=== PATIENT | female | born 1990 | race Caucasian/White ===

== ENCOUNTER → 2016-12-08 | Outpatient (CLI) | payer OTHER ==
[~2016-12-08] MED LIST: ACET1TAB43 PO; BUDE10.2 IH; BUDE10.22 IH; CYAN10006 PO; CYAN100088 PO; DOCU100C37 PO; DOXY-227 PO; DOXY100T2 PO; ENOX40DI13 SQ; FERR-74 PO; IBUP-1773 PO; MULT-301 PO; MULT-35 PO; PNV91TAB3 PO; RIVA15TA PO; RIVA20TA PO; VALA500T4 PO; [UNRECOGNIZED DRUG - CODE] SQ
--- NOTE | 2016-12-08 13:48 | Diagnostic Imaging Report ---
EXAMINATION: Pelvic ultrasound. INDICATION: Pelvic pain. FINDINGS: There are no prior studies available for comparison. The uterus is nongravid and not enlarged measuring 5.9 x 4.7 x 3.5 cm. The endometrial lining is not thickened measuring 5-6 mm. Within the endometrium, there is an IUD. The IUD seems to be in good position. Both ovaries are identified. There are subcentimeter follicles associated with each ovary and there is also a 2.2 x 1.9 cm simple cyst associated with the right ovary. There is no solid pelvic mass identified and there is no free fluid collection. IMPRESSION: 1. There is a 2.2 x 1.9 cm simple cyst associated with the right ovary. There is no acute pelvic abnormality identified otherwise. 2. There is an IUD within the uterus and the IUD seems to be in good position. Dictated by: Dictated on workstation # [id number]
== END ==
LOC: RAD 11:06
PROVIDERS: ATTEND Obstetrics & Gynecology
DX: N83.201 Unspecified ovarian cyst, right side (principal); Z97.5 Presence of (intrauterine) contraceptive device; T83.84XA Pain due to genitourinary prosthetic devices, implants and grafts, initial encounter; R10.2 Pelvic and perineal pain
CPT/HCPCS: 76830; 76856

== ENCOUNTER → 2017-04-14 | Outpatient (CLI) | payer OTHER ==
[~2017-04-14] VITALS: Ht 165.1 cm; Wt 84.4 kg
[~2017-04-14] MED LIST changes: +COSYNTROPIN 0.25 MG/ML (CORTROSYN) VIAL IV ONE
[2017-04-14 07:40] VITALS: BP 121/84
== END ==
LOC: SDC 07:33
PROVIDERS: ATTEND Internal Medicine
DX: R53.83 Other fatigue (principal); R79.0 Abnormal level of blood mineral
CPT/HCPCS: 36415; 82088; 82533; 96372

== ENCOUNTER → 2017-08-11 | Outpatient (CLI) | payer BC ==
[~2017-08-11] MED LIST changes: -COSYNTROPIN 0.25 MG/ML (CORTROSYN) VIAL IV ONE; -FERR-74 PO; +FERR325T18 PO
--- NOTE | 2017-08-11 18:26 | Diagnostic Imaging Report ---
PROCEDURE: US carotid duplex, bilateral. TECHNIQUE: Multiple real-time grayscale images were obtained over the carotid arteries in various projections, bilaterally. Additional duplex Doppler and color Doppler images were also obtained. INDICATION: Vertigo, dizziness, transient ischemic attack. FINDINGS: Color and grayscale images demonstrate no significant plaque like formation. There is no visualized area of stenosis. No abnormally elevated velocity to suggest a focal area of stenosis. External carotid arteries are patent. Vertebra arteries demonstrate antegrade direction of flow. IMPRESSION: Unremarkable carotid Doppler imaging. Parameters based on the consensus panel Del Cid-Scale and Doppler ultrasound criteria published February 2003, Radiology, Volume 229. Dictated by: Dictated on workstation # [id number]
--- NOTE | 2017-08-11 18:55 | Diagnostic Imaging Report ---
INDICATION: Vertigo, transient ischemic attack, central line, DVT. TECHNIQUE: Two view chest, 6:36 p.m. CORRELATION STUDY: 07/06/2017. FINDINGS: The heart size, mediastinal configuration and pulmonary vasculature are within normal limits. The lungs are clear with no consolidating infiltrate. There is no significant pleural effusion or pneumothorax. A left-sided central line is present. Tip appears to be projecting over the proximal aspect of the right atrium. Could safely be retracted approximately 2 cm. IMPRESSION: 1. No radiographic evidence for acute abnormality of the chest. 2. A left-sided central line is present. Tip projecting over the right atrium could be retracted approximately 2 cm. Report impression was left on Dr. Ronny Gloria's direct voice mail at 6:39 p.m. and also faxed to his office number from the [employer] by holland. Report was called to Mel Gloria by octaviano at 8:40 am. Dictated by: Dictated on workstation # [id number]
--- NOTE | 2017-09-07 08:14 | Physician Query-General Query ---
Physician Query-General Query to Physician: I am needing further specificity for the DVT. Laterality/site/ vessel.Unspecified codes are not accepted. PHYSICIAN RESPONSE: Based on the clinical findings in the record, please respond to the query above on this document as an addendum. Possible, probable, or questionable diagnosis can be coded for INPATIENTS ONLY. Physician Response: If you have questions please contact: Multifocal Button Generator: Nani Ext: [phone] Thank you for your time and cooperation. Clinical Pantograph Watcher/Multifocal Button Generator This is a permanent part of the medical record NANI ARAIZA September 07, 2017 08:14
== END ==
LOC: RAD 17:46
PROVIDERS: ATTEND Nurse Practitioner Family
DX: G45.9 Transient cerebral ischemic attack, unspecified (principal); I82.A11 Acute embolism and thrombosis of right axillary vein
CPT/HCPCS: 36415; 71046; 85379; 93880

== ENCOUNTER 2017-08-12 08:45 | Outpatient (RCR) | payer BC ==
[2017-07-06 13:45] VITALS: BP 154/97
[2017-07-06 14:58] LABS: HEMOGLOBIN 13.8 G/DL (11.5-16.0); RED BLOOD COUNT 4.73 10^6/uL (4.35-5.85); RED CELL DISTRIBUTION WIDTH 13.6 % (10.0-14.5); WHITE BLOOD COUNT 9.8 10^3/uL (4.3-11.0)
[2017-07-06 15:13] LABS: BILIRUBIN,URINE NEGATIVE (NEGATIVE); CLARITY,URINE CLEAR; COLOR,URINE YELLOW; GLUCOSE, URINE (UA) NEGATIVE (NEGATIVE); KETONES,URINE NEGATIVE (NEGATIVE); LEUKOCYTE ESTERASE ,URINE NEGATIVE (NEGATIVE); NITRITE,URINE NEGATIVE (NEGATIVE); PH,URINE 6.5 (5-9); PROTEIN,URINE NEGATIVE (NEGATIVE); UROBILINOGEN,URINE NORMAL (NORMAL)
--- NOTE | 2017-07-06 15:15 | Diagnostic Imaging Report ---
INDICATION: PICC line placement. TECHNIQUE: A frontal chest was obtained at 2:44 PM. COMPARISON: 03/02/2015. FINDINGS: The heart and mediastinal silhouette are normal in appearance. The lungs are clear. There is no pneumothorax or pleural fluid. The previous Port-A-Cath has been removed. There is a new PICC line in place from the left arm with the tip overlying the low SVC. IMPRESSION: The new left-sided PICC line tip overlies the low SVC. No acute process in the chest. Report was called to nurse Munoz in the office of Dr. Ronny Gloria at 3:14 p.m., by holland (for BRANDO). Dictated by: Dictated on workstation # [id number]
[2017-07-06 15:17] LABS: ALANINE AMINOTRANSFERASE 16 U/L (0-55); ALBUMIN 4.2 GM/DL (3.2-4.5); ALKALINE PHOSPHATASE 96 U/L (40-136); BILIRUBIN,TOTAL 0.5 MG/DL (0.1-1.0); BUN/CREATININE RATIO 14; CALCIUM 8.7 MG/DL (8.5-10.1); CARBON DIOXIDE 25 MMOL/L (21-32); CHLORIDE 105 MMOL/L (98-107); CREATININE SERUM 0.78 MG/DL (0.60-1.30); GFR ESTIMATED > 60; GLUCOSE 134 MG/DL (70-105); POTASSIUM 3.9 MMOL/L (3.6-5.0); SODIUM 136 MMOL/L (135-145)
[2017-07-06 15:20] LABS: BACTERIA,URINE FEW /HPF; RBC,URINE 0-2 /HPF; WBC,URINE RARE /HPF
[2017-07-06] MEDS: cefTRIAXone 1 GM/NS 100 ML IVPB IV SCH ×2 (15:20)
[2017-07-06 15:55] VITALS: BP 154/97
[2017-07-07 14:38] VITALS: BP 135/84
[2017-07-07] MEDS: cefTRIAXone 1 GM/NS 100 ML IVPB IV SCH ×2 (14:38)
[2017-07-08] MEDS: cefTRIAXone 1 GM/NS 100 ML IVPB IV SCH ×2 (14:29)
[2017-07-08 14:30] VITALS: BP 134/88
[2017-07-08 15:09] VITALS: BP 134/88
[2017-07-12] MEDS: cefTRIAXone 1 GM/NS 100 ML IVPB IV SCH ×2 (14:25)
[2017-07-12] MEDS: CATHETER FLUSH 10 ML SYR IV PRN ×2 (14:25→14:55)
[2017-07-12 15:01] VITALS: BP 123/80
[2017-07-13 14:15] VITALS: BP 122/74
[2017-07-13] MEDS: cefTRIAXone 1 GM/NS 100 ML IVPB IV SCH ×2 (14:36)
[2017-07-13] MEDS: CATHETER FLUSH 10 ML SYR IV PRN ×2 (14:36→15:05)
[2017-07-13 15:05] LABS: MEAN PLATELET VOLUME 10.6 FL (7.4-10.4); RED BLOOD COUNT 4.77 10^6/uL (4.35-5.85); RED CELL DISTRIBUTION WIDTH 13.7 % (10.0-14.5); WHITE BLOOD COUNT 9.8 10^3/uL (4.3-11.0)
[2017-07-13 15:30] LABS: ALANINE AMINOTRANSFERASE 14 U/L (0-55); ALBUMIN 4.3 GM/DL (3.2-4.5); ALKALINE PHOSPHATASE 98 U/L (40-136); BILIRUBIN,TOTAL 0.4 MG/DL (0.1-1.0); BUN/CREATININE RATIO 14; CALCIUM 9.2 MG/DL (8.5-10.1); CARBON DIOXIDE 25 MMOL/L (21-32); CHLORIDE 104 MMOL/L (98-107); CREATININE SERUM 0.76 MG/DL (0.60-1.30); GFR ESTIMATED > 60; GLUCOSE 132 MG/DL (70-105); POTASSIUM 3.5 MMOL/L (3.6-5.0); SODIUM 137 MMOL/L (135-145); TOTAL PROTEIN 7.3 GM/DL (6.4-8.2)
[2017-07-14] MEDS: CATHETER FLUSH 10 ML SYR IV PRN ×2 (14:24→14:55)
[2017-07-14] MEDS: cefTRIAXone 1 GM/NS 100 ML IVPB IV SCH ×2 (14:25)
[2017-07-14 15:00] VITALS: BP 137/88
[2017-07-15] MEDS: cefTRIAXone 1 GM/NS 100 ML IVPB IV SCH ×2 (14:21)
[2017-07-15 14:55] VITALS: BP 121/84
[2017-07-16] MEDS: CATHETER FLUSH 10 ML SYR IV PRN ×2 (09:17→09:45)
[2017-07-16] MEDS: cefTRIAXone 1 GM/NS 100 ML IVPB IV SCH ×2 (09:17)
[2017-07-16 09:45] VITALS: BP 131/81
[2017-07-17] MEDS: CATHETER FLUSH 10 ML SYR IV PRN ×2 (09:26→09:45)
[2017-07-17] MEDS: cefTRIAXone 1 GM/NS 100 ML IVPB IV SCH ×2 (09:26)
[2017-07-17 09:45] VITALS: BP 127/87
[2017-07-18] MEDS: CATHETER FLUSH 10 ML SYR IV PRN (14:16)
[2017-07-18] MEDS: cefTRIAXone 1 GM/NS 100 ML IVPB IV SCH ×2 (14:16)
[2017-07-18 14:40] VITALS: BP 132/80
[2017-07-19] MEDS: cefTRIAXone 1 GM/NS 100 ML IVPB IV SCH ×2 (14:09)
[2017-07-19 14:14] VITALS: BP 128/82
[2017-07-19 14:40] VITALS: BP 128/82
[2017-07-19] MEDS: CATHETER FLUSH 10 ML SYR IV PRN (14:40)
[2017-07-20] MEDS: CATHETER FLUSH 10 ML SYR IV PRN ×2 (14:09→14:40)
[2017-07-20] MEDS: cefTRIAXone 1 GM/NS 100 ML IVPB IV SCH ×2 (14:10)
[2017-07-20 14:19] LABS: BASOPHILS % (AUTO) 0 % (0-10); EOSINOPHILS # (AUTO) 0.4 10^3/uL (0.0-0.3); EOSINOPHILS % (AUTO) 4 % (0-10); HEMATOCRIT 41 % (35-52); HEMOGLOBIN 14.1 G/DL (11.5-16.0); LYMPHOCYTES # (AUTO) 2.5 X 10^3 (1.0-4.0); LYMPHOCYTES % (AUTO) 29 % (12-44); MEAN CORPUSCULAR HEMOGLOBIN 30 PG (25-34); MEAN CORPUSCULAR HGB CONC 35 G/DL (32-36); MEAN CORPUSCULAR VOLUME 86 FL (80-99); MEAN PLATELET VOLUME 9.6 FL (7.4-10.4); MONOCYTES # (AUTO) 0.5 X 10^3 (0.0-1.0); MONOCYTES % (AUTO) 6 % (0-12); NEUTROPHILS # (AUTO) 5.3 X 10^3 (1.8-7.8); NEUTROPHILS % (AUTO) 61 % (42-75); PLATELET COUNT 259 10^3/uL (130-400); RED BLOOD COUNT 4.76 10^6/uL (4.35-5.85); RED CELL DISTRIBUTION WIDTH 13.8 % (10.0-14.5); WHITE BLOOD COUNT 8.8 10^3/uL (4.3-11.0)
[2017-07-20 14:49] LABS: ALANINE AMINOTRANSFERASE 16 U/L (0-55); ALBUMIN 4.3 GM/DL (3.2-4.5); ALKALINE PHOSPHATASE 94 U/L (40-136); BILIRUBIN,TOTAL 0.4 MG/DL (0.1-1.0); BUN/CREATININE RATIO 14; CALCIUM 8.7 MG/DL (8.5-10.1); CARBON DIOXIDE 25 MMOL/L (21-32); CHLORIDE 105 MMOL/L (98-107); CREATININE SERUM 0.76 MG/DL (0.60-1.30); GFR ESTIMATED > 60; GLUCOSE 115 MG/DL (70-105); POTASSIUM 3.9 MMOL/L (3.6-5.0); SODIUM 137 MMOL/L (135-145); TOTAL PROTEIN 7.4 GM/DL (6.4-8.2)
[2017-07-20 14:50] VITALS: BP 149/87
[2017-07-20 15:19] LABS: BILIRUBIN,URINE NEGATIVE (NEGATIVE); CLARITY,URINE CLEAR; COLOR,URINE YELLOW; GLUCOSE, URINE (UA) NEGATIVE (NEGATIVE); KETONES,URINE NEGATIVE (NEGATIVE); LEUKOCYTE ESTERASE ,URINE 1+ (NEGATIVE); NITRITE,URINE NEGATIVE (NEGATIVE); PH,URINE 6.5 (5-9); PROTEIN,URINE NEGATIVE (NEGATIVE); UROBILINOGEN,URINE NORMAL (NORMAL)
[2017-07-20 15:28] LABS: BACTERIA,URINE NEGATIVE /HPF; WBC,URINE RARE /HPF
[2017-07-21 16:40] VITALS: BP 123/87
[2017-07-21] MEDS: CATHETER FLUSH 10 ML SYR IV PRN (16:44)
[2017-07-21] MEDS: DOXYCYCLINE INJECTION 100 MG in NS (IVPB) 100 ML IV SCH (16:45)
[2017-07-21] MEDS: cefTRIAXone 1 GM/NS 100 ML IVPB IV SCH ×2 (17:32)
[2017-07-22] MEDS: DOXYCYCLINE INJECTION 100 MG in NS (IVPB) 100 ML IV SCH ×2 (08:39→20:42)
[2017-07-22 08:41] VITALS: BP 135/86
[2017-07-22 09:36] VITALS: BP 135/86
[2017-07-22 20:30] VITALS: BP 134/70
[2017-07-22] MEDS: CATHETER FLUSH 10 ML SYR IV PRN ×2 (20:42→21:40)
[2017-07-23] MEDS: DOXYCYCLINE INJECTION 100 MG in NS (IVPB) 100 ML IV SCH (08:32)
[2017-07-23 10:18] VITALS: BP 125/81
[2017-07-24] MEDS: DOXYCYCLINE INJECTION 100 MG in NS (IVPB) 100 ML IV SCH (08:13)
[2017-07-24 08:16] VITALS: BP 130/84
[2017-07-24 09:11] VITALS: BP 130/84
[2017-07-25] MEDS: CATHETER FLUSH 10 ML SYR IV PRN ×2 (08:14→20:53)
[2017-07-25 08:30] VITALS: BP 131/80
[2017-07-25] MEDS: DOXYCYCLINE INJECTION 100 MG in NS (IVPB) 100 ML IV SCH ×2 (08:35→20:53)
[2017-07-25] MEDS: cefTRIAXone 1 GM/NS 100 ML IVPB IV SCH ×4 (09:40→09:42)
[2017-07-25 20:35] VITALS: BP 145/80
[2017-07-27] MEDS: DOXYCYCLINE INJECTION 100 MG in NS (IVPB) 100 ML IV SCH (08:43)
[2017-07-27 08:55] VITALS: BP 135/91
[2017-07-27 09:41] VITALS: BP 135/91
[2017-07-28 08:40] VITALS: BP 115/85
[2017-07-28] MEDS: CATHETER FLUSH 10 ML SYR IV PRN (08:54)
[2017-07-28] MEDS: DOXYCYCLINE INJECTION 100 MG in NS (IVPB) 100 ML IV SCH (08:54)
[2017-07-30 09:20] VITALS: BP 130/87
[2017-07-30] MEDS: DOXYCYCLINE INJECTION 100 MG in NS (IVPB) 100 ML IV SCH (09:27)
[2017-08-03] MEDS: DOXYCYCLINE INJECTION 100 MG in NS (IVPB) 100 ML IV SCH ×3 (08:09→08:40)
[2017-08-03 08:30] VITALS: BP 124/73
[2017-08-03] MEDS: CATHETER FLUSH 10 ML SYR IV PRN (08:35)
[2017-08-04] MEDS: CATHETER FLUSH 10 ML SYR IV PRN (08:15)
[2017-08-04 08:20] VITALS: BP 111/90
[2017-08-04] MEDS: DOXYCYCLINE INJECTION 100 MG in NS (IVPB) 100 ML IV SCH (08:20)
[2017-08-04 08:38] LABS: BILIRUBIN,URINE NEGATIVE (NEGATIVE); CLARITY,URINE CLEAR; COLOR,URINE YELLOW; GLUCOSE, URINE (UA) NEGATIVE (NEGATIVE); KETONES,URINE NEGATIVE (NEGATIVE); LEUKOCYTE ESTERASE ,URINE 2+ (NEGATIVE); NITRITE,URINE NEGATIVE (NEGATIVE); PH,URINE 6.5 (5-9); PROTEIN,URINE 1+ (NEGATIVE); UROBILINOGEN,URINE NORMAL (NORMAL)
[2017-08-04 08:45] LABS: BACTERIA,URINE LARGE /HPF; RBC,URINE 0-2 /HPF
[2017-08-04 09:00] LABS: HEMOGLOBIN 14.5 G/DL (11.5-16.0); MEAN PLATELET VOLUME 10.4 FL (7.4-10.4); RED BLOOD COUNT 4.95 10^6/uL (4.35-5.85); RED CELL DISTRIBUTION WIDTH 13.7 % (10.0-14.5); WHITE BLOOD COUNT 5.7 10^3/uL (4.3-11.0)
[2017-08-04 09:12] LABS: ALANINE AMINOTRANSFERASE 18 U/L (0-55); ALBUMIN 4.6 GM/DL (3.2-4.5); ALKALINE PHOSPHATASE 97 U/L (40-136); BILIRUBIN,TOTAL 0.6 MG/DL (0.1-1.0); BUN/CREATININE RATIO 18; CALCIUM 9.4 MG/DL (8.5-10.1); CARBON DIOXIDE 24 MMOL/L (21-32); CHLORIDE 106 MMOL/L (98-107); CREATININE SERUM 0.79 MG/DL (0.60-1.30); GFR ESTIMATED > 60; GLUCOSE 83 MG/DL (70-105); POTASSIUM 4.5 MMOL/L (3.6-5.0); SODIUM 138 MMOL/L (135-145); TOTAL PROTEIN 7.8 GM/DL (6.4-8.2)
[2017-08-05] MEDS: DOXYCYCLINE INJECTION 100 MG in NS (IVPB) 100 ML IV SCH (08:36)
[2017-08-05 09:41] VITALS: BP 126/83
[2017-08-08] MEDS: CATHETER FLUSH 10 ML SYR IV PRN ×4 (08:35→09:30)
[2017-08-08] MEDS: DOXYCYCLINE INJECTION 100 MG in NS (IVPB) 100 ML IV SCH (08:43)
[2017-08-08 09:30] VITALS: BP 121/83
[2017-08-09] MEDS: DOXYCYCLINE INJECTION 100 MG in NS (IVPB) 100 ML IV SCH (08:40)
[2017-08-09] MEDS: CATHETER FLUSH 10 ML SYR IV PRN (08:40)
[2017-08-09 09:40] VITALS: BP 127/78
[2017-08-10 08:10] VITALS: BP 136/91
[2017-08-10] MEDS: CATHETER FLUSH 10 ML SYR IV PRN (08:14)
[2017-08-10] MEDS: DOXYCYCLINE INJECTION 100 MG in NS (IVPB) 100 ML IV SCH (08:15)
[2017-08-11 08:50] VITALS: BP 129/76
[2017-08-11] MEDS: CATHETER FLUSH 10 ML SYR IV PRN (08:50)
[2017-08-11] MEDS: DOXYCYCLINE INJECTION 100 MG in NS (IVPB) 100 ML IV SCH (08:55)
[~2017-08-12] VITALS: Ht 165.1 cm; Wt 70.4 kg
[~2017-08-12 08:45] MED LIST changes: +DOXYCYCLINE 100 MG INJ (VIBRAMYCIN) ONE; -GADOBUTROL 7.5 MMOL/7.5 ML (GADAVIST) VIAL IV ONE; +NS (IVPB) 0 ML ONE; +NS (IVPB) 100 ML ONE; +cefTRIAXone 1 GM (ROCEPHIN) VIAL ONE
[2017-08-12 08:50] VITALS: BP 134/88
== END 2017-10-04 | disposition home or self-care (01) ==
LOC: SDC 08:45
PROVIDERS: ATTEND Nurse Practitioner Family
DX: R78.81 Bacteremia (principal); A69.22 Other neurologic disorders in Lyme disease
CPT/HCPCS: 36415; 36569; 36592; 71045; 76937; 80053; 81000; 85025; 85027; 87070; 87088; 96365; 99211

== ENCOUNTER → 2017-08-12 | Outpatient (CLI) | payer BC ==
[~2017-08-12] MED LIST changes: +GADOBUTROL 7.5 MMOL/7.5 ML (GADAVIST) VIAL IV ONE
--- NOTE | 2017-08-12 16:00 | Diagnostic Imaging Report ---
PROCEDURE: MR imaging of the brain with and without contrast. TECHNIQUE: Multiplanar, multisequence MR imaging of the brain was performed with and without contrast. INDICATION: Severe headache and dizziness as well as confusion and numbness and tingling to the entire body. COMPARISON: No prior studies are available for comparison. FINDINGS: The ventricles and sulci are within normal limits. No sulcal effacement, midline shift, or hemorrhage is seen. No diffusion restriction is identified. The normal expected flow-voids within the carotid siphons are seen. No abnormal enhancement is seen following contrast administration. The corpus callosum is unremarkable. The sella and parasellar structures are unremarkable. There is mucosal thickening of bilateral maxillary sinuses as well as right-sided ethmoid air cells and the sphenoid sinus. There is a shallow air-fluid level in the left maxillary sinus. IMPRESSION: 1. Essentially unremarkable MRI of the brain with and without contrast with the exception of laboy-sinus mucosal disease and questionable mild left maxillary sinusitis. Dictated by: Dictated on workstation # [id number]
== END ==
LOC: RAD 13:38
PROVIDERS: ATTEND Nurse Practitioner Family
DX: R51 Headache (principal); R41.0 Disorientation, unspecified; R42 Dizziness and giddiness; I82.409 Acute embolism and thrombosis of unspecified deep veins of unspecified lower extremity
CPT/HCPCS: 70553

== ENCOUNTER 2018-02-03 10:40 | Emergency (ER) | payer BC ==
[~2018-02-03] VITALS: Ht 165.1 cm; Wt 74.4 kg
[~2018-02-03 10:40] MED LIST changes: -DOXYCYCLINE 100 MG INJ (VIBRAMYCIN) ONE; -NS (IVPB) 0 ML ONE; -NS (IVPB) 100 ML ONE; -cefTRIAXone 1 GM (ROCEPHIN) VIAL ONE
--- NOTE | 2018-02-03 10:56 | ED General ---
General Stated Complaint: R ARM AND LEG NUMB;PAIN Source of Information: Patient Exam Limitations: No Limitations History of Present Illness Date Seen by Provider: Feb 03, 2018 Time Seen by Provider: 10:51 Initial Comments To ER with c/o right arm numbness and right leg numbness for 3 days. History of DVT in right arm "because of her port" in 2014. Has a port placed due to "chronic lymes disease" for which she was receiving IV doxycycline which has been "in remission" so she hasnt had any treatment since August of this here but here lately she's been having symptoms again. She has tenderness to the right anterior upper arm but no numbness. The numbness starts at the elbow and extends distally down the volar aspect of the right forearm. The knee numbness in the right leg begins at the knee and extends distally from there. No headaches or fevers. PCP is Dr Hunt but states Cinda Faizan helps with her chronic lyme disease. Timing/Duration: 1-2 Days Severity: Moderate Allergies and Home Medications Allergies Coded Allergies: ragweed pollen (Verified Allergy, Unknown, 02/02/16) Home Medications Acetaminophen with Codeine 1 Each Tablet, 1-2 TAB PO Q4H PRN for MODERATE TO SEVERE PAIN Prescribed by: RAFAL ROSADO on 02/02/162022 Docusate Sodium 100 Mg Capsule, 100 MG PO BID PRN for CONSTIPATION Prescribed by: RAFAL ROSADO on 02/02/162022 Ferrous Sulfate 325 Mg Tablet, 325 MG PO DAILY Prescribed by: RAFAL ROSADO on 02/02/162022 Ibuprofen 600 Mg Tablet, 600 MG PO Q6H Prescribed by: RAFAL ROSADO on 02/02/162022 Pnv95/Ferrous Fumarate/FA 1 Each Tablet, 1 EACH PO DAILY, (Reported) Patient Home Medication List Home Medication List Reviewed: Yes Review of Systems Review of Systems Constitutional: see HPI EENTM: see HPI Respiratory: no symptoms reported Cardiovascular: no symptoms reported Genitourinary: no symptoms reported Musculoskeletal: see HPI Skin: no symptoms reported Psychiatric/Neurological: See HPI, Paresthesia Hematologic/Lymphatic: No Symptoms Reported Past Kammuto-Sobobj-Tdpzci Hx Patient Social History Recent Hopitalizations: Yes (February - blood clot ) Immunizations Up To Date Tetanus Booster (TDap): Unknown PED Vaccines UTD: No Seasonal Allergies Seasonal Allergies: Yes Past Medical History Asthma Currently Using CPAP: No Currently Using BIPAP: No Reproductive Disorders: No Female Reproductive Disorders: Denies Sexually Transmitted Disease: No HIV/AIDS: No Loss of Vision: Denies Hearing Impairment: Denies Anxiety Adverse Reaction/Blood Tranf: No Family Medical History Arthritis (MATERNAL GRANDPARENTS ) Cardiovascular disease (PATERNAL GRANDPARENT) Completed stroke (PATERNAL GRANDMOTHER) Dementia (MATERNAL GREAT-GRANDPARENTS ) Diabetes mellitus (BOTH SIDES OF GRANDPARENTS HAVE DM) Hypertension 19 FATHER Myocardial infarction (PATERNAL GRANDFATHER ) Prostate cancer (MATERNAL GREAT GRANDFATHER ) Severe allergy 19 FATHER Heart Disease, Hypertension, Vascular Disease Physical Exam Vital Signs Vital Signs - First Documented 02/03/18 10:58 Temp 98.1 Pulse 89 Resp 20 B/P (MAP) 122/86 (98) Pulse Ox 98 O2 Delivery Room Air Capillary Refill : Height, Weight, BMI Height: 5'5.00" Weight: 155lbs. 3.0oz. [id number]; 31.0 BMI Method: General Appearance: No Apparent Distress, WD/WN Eyes: Bilateral Eye Normal Inspection, Bilateral Eye PERRL HEENT: PERRL/EOMI, TMs Normal Neck: Full Range of Motion, Normal Inspection Respiratory: No Accessory Muscle Use, No Respiratory Distress Cardiovascular: Regular Rate, Rhythm, Normal Peripheral Pulses Gastrointestinal: Normal Bowel Sounds, Non Tender, Soft Extremity: Normal Capillary Refill, Normal Inspection Neurologic/Psychiatric: Alert, Oriented x3, No Motor/Sensory Deficits Skin: Normal Color, Warm/Dry, Other (no swelling erythema ecchymosis or any other abnormality of right arm on inspection.) Progress/Results/Core Measures Suspected Sepsis SIRS Temperature: Pulse: Respiratory Rate: Blood Pressure / Mean: Results/Orders My Orders Orders - DIVINA KRUGER APRN Ct Head/Cervical Spine Wo (02/03/18 10:50) Us Venous Upper Ext Rt (02/03/18 10:50) Vital Signs/I&O 02/03/18 10:58 Temp 98.1 Pulse 89 Resp 20 B/P (MAP) 122/86 (98) Pulse Ox 98 O2 Delivery Room Air Capillary Refill : Diagnostic Imaging Diagonstic Imaging: Xray Comments NAME: ANTONETTE JOHN MED REC#: [id number] PT STATUS: REG ER : 1990 PHYSICIAN: DIVINA KRUGER APRN ADMIT DATE: 02/03/18/ER Draft Date of Exam:02/03/18 CT HEAD/CERVICAL SPINE WO PROCEDURE: CT head and CT cervical spine without contrast. TECHNIQUE: Multiple contiguous axial images were obtained through the brain and cervical spine without the use of intravenous contrast. Sagittal and coronal reformations through the cervical spine were then performed. INDICATION: Numbness and tingling in neck, right arm and right leg. COMPARISON: MRI brain without and with IV contrast 08/12/2017. FINDINGS: CT head: No intracranial hemorrhage, mass effect, hydrocephalus or extra-axial fluid collections. No CT evidence for territorial infarction. Osseous structures are intact. Small air-fluid levels in the maxillary sinuses and sphenoid sinuses. The mastoids are clear. CT cervical spine: Normal alignment. Vertebral body heights preserved. No fractures. The visualized paravertebral soft tissues are unremarkable. No evidence of high-grade spinal canal narrowing. IMPRESSION: No acute intracranial or cervical spine CT findings. Dictated on workstation # [id number] Dict: 02/03/18 1220 Trans: 02/03/18 1227 [facility] [id number] Interpreted by: BRUNILDA RUVALCABA MD Electronically signed by: Departure Impression Primary Impression: Paresthesia of right arm and leg Disposition: 01 HOME, SELF-CARE Condition: Stable Departure-Patient Inst. Decision time for Depature: 10:56 Referrals: VENU HUNT MD (PCP/Family) Primary Care Physician Patient Instructions: Paresthesias (DC) Add. Discharge Instructions: 1. Follow up with Dr Hunt today to make an appointment to be seen for follow up and further evaluation. Copy Copies To 1: VENU HUNT MD, PETER J APRN Feb 03, 2018 10:56
[2018-02-03] MEDS ORDERED: NS 250 ML (IVPB) BAG IV ONE (11:15)
[2018-02-03] MEDS ORDERED: IOHEXOL 350 MG/ML 100 ML (OMNIPAQUE 350) VIAL IV ONE (11:15)
--- NOTE | 2018-02-03 12:27 | Diagnostic Imaging Report ---
PROCEDURE: CT head and CT cervical spine without contrast. TECHNIQUE: Multiple contiguous axial images were obtained through the brain and cervical spine without the use of intravenous contrast. Sagittal and coronal reformations through the cervical spine were then performed. INDICATION: Numbness and tingling in neck, right arm and right leg. COMPARISON: MRI brain without and with IV contrast 08/12/2017. FINDINGS: CT head: No intracranial hemorrhage, mass effect, hydrocephalus or extra-axial fluid collections. No CT evidence for territorial infarction. Osseous structures are intact. Small air-fluid levels in the maxillary sinuses and sphenoid sinuses. The mastoids are clear. CT cervical spine: Normal alignment. Vertebral body heights preserved. No fractures. The visualized paravertebral soft tissues are unremarkable. No evidence of high-grade spinal canal narrowing. IMPRESSION: No acute intracranial or cervical spine CT findings. Dictated by: Dictated on workstation # [id number]
--- NOTE | 2018-02-03 12:31 | Diagnostic Imaging Report ---
INDICATION: Right arm pain and tingling, history of previous deep vein thrombosis. Right upper extremity venous Doppler study performed in the routine fashion with color flow Doppler and waveform analysis. FINDINGS: The right internal jugular vein, right subclavian vein, and right axillary vein are patent and compressible. The right brachial and basilic veins are patent. The cephalic vein could not be imaged. Visualized portions of the ulnar and radial veins are patent. IMPRESSION: No evidence of deep vein thrombosis in the major veins of the right upper extremity. Dictated by: Dictated on workstation # [id number]
[2018-02-03 12:41] VITALS: BP 122/86
== END 2018-02-03 12:43 | disposition home or self-care (01) ==
LOC: EDUNIT# 10:40 → ER 10:41
DX: R20.2 Paresthesia of skin (principal); J45.909 Unspecified asthma, uncomplicated; F41.9 Anxiety disorder, unspecified; Z82.49 Family history of ischemic heart disease and other diseases of the circulatory system; Z86.718 Personal history of other venous thrombosis and embolism
CPT/HCPCS: 70450; 72125

== ENCOUNTER → 2020-04-23 | Outpatient (CLI) | payer BC ==
[~2020-04-23] MED LIST changes: +CYAN-41 PO; -CYAN10006 PO; +HYDR-4226 PO; -RIVA15TA PO; +RIVA15TA2 PO; -RIVA20TA PO; +RIVA20TA2 PO
== END ==
LOC: LABNPT 05:36
PROVIDERS: ATTEND Family Medicine
DX: Z20.828 Contact with and (suspected) exposure to other viral communicable diseases (principal)
CPT/HCPCS: 87635

== ENCOUNTER → 2020-05-19 | Outpatient (CLI) | payer BC ==
--- NOTE | 2020-05-19 12:38 | Diagnostic Imaging Report ---
INDICATION: survey. TECHNIQUE: Multiple real-time grayscale images were obtained over the gravid uterus. COMPARISON: None FINDINGS: There is a single live fetus in a cephalic presentation. heart rate was recorded at 152 bpm. Placenta is posterior and to the right. Amniotic fluid volume is normal. Cervical length is 5.3 cm. survey demonstrates kidneys, bladder and stomach to be unremarkable. brain is unremarkable. There is a four-chamber heart. There is a three-vessel cord with normal insertion. spine is unremarkable. Biometrical measurements are as follows: Biparietal 4.74 cm, age 20 weeks 3 days. Head circumference 18.23 cm, age 20 weeks 5 days. Abdominal circumference 15.47 cm, age 20 weeks 5 days. Femur length 3.53 cm, age 21 weeks 2 days. Sonographic estimate age: 20 weeks 6 days. Sonographic estimated date of delivery: 09/30/20. Estimated Weight: 381 gm (+/- 56 gm). LMP percentile: 60%. heart rate: 152 beats per minute. number: 1 of 1. IMPRESSION: Single live IUP 20 weeks 6 days gestational age. Estimated date of confinement sonographically is 09/30/2020. No complicating features are detected. Dictated by: Dictated on workstation # [id number]
== END ==
LOC: RAD 10:00
PROVIDERS: ATTEND Obstetrics & Gynecology
DX: Z34.92 Encounter for supervision of normal pregnancy, unspecified, second trimester (principal); Z3A.20 20 weeks gestation of pregnancy
CPT/HCPCS: 76805

== ENCOUNTER 2020-09-12 14:59 | Inpatient (IN) | payer BC ==
[~2020-09-12] VITALS: Ht 165.1 cm; Wt 85.0 kg
[2020-09-12 15:14] VITALS: BP 128/82
[2020-09-12] MEDS ORDERED: LACTATED RINGERS 1,000 ML IV SCH (16:00)
[2020-09-12] MEDS: D5 LR IV SOLUTION 1,000 ML IV SCH ×3 (16:35→18:34)
[2020-09-12 19:33] VITALS: BP 136/74
[2020-09-12 22:45] LABS: BASOPHILS % (AUTO) 0 % (0-10); EOSINOPHILS # (AUTO) 0.3 10^3/uL (0.0-0.3); EOSINOPHILS % (AUTO) 3 % (0-10); HEMATOCRIT 38 % (35-52); HEMOGLOBIN 12.6 g/dL (11.5-16.0); LYMPHOCYTES # (AUTO) 2.2 10^3/uL (1.0-4.0); LYMPHOCYTES % (AUTO) 24 % (12-44); MEAN CORPUSCULAR HEMOGLOBIN 30 pg (25-34); MEAN CORPUSCULAR HGB CONC 33 g/dL (32-36); MEAN CORPUSCULAR VOLUME 90 fL (80-99); MEAN PLATELET VOLUME 11.4 fL (9.0-12.2); MONOCYTES # (AUTO) 0.6 10^3/uL (0.0-1.0); MONOCYTES % (AUTO) 6 % (0-12); NEUTROPHILS # (AUTO) 6.3 10^3/uL (1.8-7.8); NEUTROPHILS % (AUTO) 66 % (42-75); PLATELET COUNT 228 10^3/uL (130-400); WHITE BLOOD COUNT 9.5 10^3/uL (4.3-11.0)
[2020-09-12 23:07] VITALS: BP 129/81
[2020-09-12 23:15] VITALS: BP 129/81
[2020-09-13] VITALS (12 sets, daily range): BP systolic 99–135; BP diastolic 62–83
[2020-09-13] MEDS: D5 LR IV SOLUTION 1,000 ML IV SCH (00:38)
[2020-09-13] MEDS ORDERED: METOCLOPRAMIDE INJ 10 MG/2 ML (REGLAN) ONE (04:49)
[2020-09-13] MEDS ORDERED: CITRIC ACID/SOB CIT (BICITRA) 30 ML UDC ONE (04:50)
[2020-09-13] MEDS ORDERED: ceFAZolin 2 GM IV Premixed 50 ML ONE (04:50)
[2020-09-13] MEDS ORDERED: FAMOTIDINE 20MG/2ML IV (PEPCID) ONE (04:50)
[2020-09-13] MEDS ORDERED: METOCLOPRAMIDE INJ 10 MG/2 ML (REGLAN) IV ONE (05:15)
[2020-09-13] MEDS ORDERED: CITRIC ACID/SOB CIT (BICITRA) 30 ML UDC PO ONE (05:15)
[2020-09-13] MEDS ORDERED: LACTATED RINGERS 1,000 ML IV PRN ×2 (05:15)
[2020-09-13] MEDS ORDERED: FAMOTIDINE 20MG/2ML IV (PEPCID) IV ONE (05:15)
[2020-09-13] MEDS: CATHETER FLUSH 10 ML SYR IV SCH ×3 (05:31→23:21)
[2020-09-13] MEDS ORDERED: OXYTOCIN PRE-MIX DRIP 1,000 ML IV ONE (05:41)
[2020-09-13] MEDS ORDERED: KETOROLAC 30 MG/ML VIAL ONE (05:41)
[2020-09-13] MEDS ORDERED: fentaNYL INJ 100 MCG/2 ML AMP ONE (05:41)
[2020-09-13] MEDS ORDERED: ONDANSETRON 4 MG/2 ML (SDV) Z0FRAN ONE (05:41)
[2020-09-13] MEDS ORDERED: ceFAZolin 2 GM IV Premixed 50 ML IV ONE (05:45)
--- NOTE | 2020-09-13 05:54 | History & Physical-OB ---
OB - Chief Complaint & HPI Date/Time Date of Admission: Date of Admission: September 12, 2020 at 21:35 Date seen by a Provider: September 13, 2020 Time Seen by a Provider: 05:30 Chief Complaint/History OB-Reason for Admission/Chief: Section Hx : 3 Hx Para: 1 Expected Date of Delivery: Oct 02, 2020 Gestational Age in Weeks: 37 Gestational Age in Days: 1 Indication for : malpresentation Other reason for admission: Patient admitted in early labor found to have persistent malpresentation, that was identified in office last week. We had discussed and planned/scheduled PLTCS for next Tuesday, however will proceed today due to early labor. Admission Nurse Assessment Rev: Yes History of Labs B pos Antibody neg RI RPR NR HBsAg NR HIV NR GC neg GBS neg Allergies and Home Medications Allergies Coded Allergies: ragweed pollen (Verified Allergy, Unknown, 02/02/16) Home Medications Acetaminophen with Codeine 1 Each Tablet, 1-2 TAB PO Q4H PRN for MODERATE TO SEVERE PAIN Prescribed by: RAFAL ROSADO on 02/02/162022 Docusate Sodium 100 Mg Capsule, 100 MG PO BID PRN for CONSTIPATION Prescribed by: RAFAL ROSADO on 02/02/162022 Ferrous Sulfate 325 Mg Tablet, 325 MG PO DAILY Prescribed by: RAFAL ROSADO on 02/02/162022 Hydrocodone/Acetaminophen 1 Each Tablet, 1 TAB PO Q4-6HR Prescribed by: RAFAL ROSADO on 06/25/19 111 Ibuprofen 600 Mg Tablet, 600 MG PO Q6H Prescribed by: RAFAL ROSADO on 06/25/19 1110 Pnv95/Ferrous Fumarate/FA 1 Each Tablet, 1 EACH PO DAILY, (Reported) Patient Home Medication List Home Medication List Reviewed: Yes OB - History Hx of Present Care: Yes Ultrasounds: Normal mid trimester US Obstetrical Complications: None Medical Complications: None Obstetrical History Hx : 3 Hx Para: 1 Delivery History Hx Blood Disorders: No Adverse Rxn to Tranfusion: No Patient Past Medical History lyme dz, HSV Social History/Family History Alcohol Use: Denies Use Recreational Drug Use: No 2nd Hand Smoke Exposure: No Immunizations Hepatitis A: No Hepatitis B: Yes Tetanus Booster (TDap): Unknown OB - Admission Exam Physical Exam Vitals: Vital Signs 09/12/20 09/13/20 23:07 05:20 Temp 36.8 Pulse 85 Resp 18 B/P (MAP) 120/77 (91) Pulse Ox 97 O2 Delivery Room Air HEENT: NCAT Heart: Rhythm Normal Lungs: Clear Abdomen: Gravid Extremities: Normal Reflexes: Normal Cervical Dilatation: 2cm Effacement: 75% Station: -1 Membranes: Intact Heart Rate: 130's Accelerations: Accelerations Present Decelerations: No Decelerations Short Term Variability: Present Mcfp Variability: Average (6-25) Contractions on Admission: 6-10 Minutes Apart Intensity: Mild Labs Laboratory Tests Test 09/12/20 16:20 Range/Units White Blood Count 9.5 4.3-11.0 10^3/uL Red Blood Count 4.22 3.80-5.11 10^6/uL Hemoglobin 12.6 11.5-16.0 g/dL Hematocrit 38 35-52 % Mean Corpuscular Volume 90 80-99 fL Mean Corpuscular Hemoglobin 30 25-34 pg Mean Corpuscular Hemoglobin Concent 33 32-36 g/dL Red Cell Distribution Width 15.6 H 10.0-14.5 % Platelet Count 228 130-400 10^3/uL Mean Platelet Volume 11.4 9.0-12.2 fL Immature Granulocyte % (Auto) 0 % Neutrophils (%) (Auto) 66 42-75 % Lymphocytes (%) (Auto) 24 12-44 % Monocytes (%) (Auto) 6 0-12 % Eosinophils (%) (Auto) 3 0-10 % Basophils (%) (Auto) 0 0-10 % Neutrophils # (Auto) 6.3 1.8-7.8 10^3/uL Lymphocytes # (Auto) 2.2 1.0-4.0 10^3/uL Monocytes # (Auto) 0.6 0.0-1.0 10^3/uL Eosinophils # (Auto) 0.3 0.0-0.3 10^3/uL Basophils # (Auto) 0.0 0.0-0.1 10^3/uL Immature Granulocyte # (Auto) 0.0 0.0-0.1 10^3/uL OB - Assessment/Plan/Diagnosis Assessment Assessment: section Admission Dx 29 y o @ 37 weeks Active labor Breech presentation Admission Status: Inpatient Order (span 2 midnights) Reason for Inpatient Admission: PLTCS at 37 weeks for malpresentation Plan Plan: Section RAFAL ROSADO DO September 13, 2020 05:54
[2020-09-13] MEDS ORDERED: MEASLES,MUMPS,RUBELLA 1 EA INJ SC SCH (06:00)
[2020-09-13] MEDS ORDERED: OXYTOCIN PRE-MIX DRIP 500 ML IV SCH (06:00)
[2020-09-13] MEDS ORDERED: TETANUS,DIPTH,PERTUSS P/F (BOOSTRIX) 0.5 ML VIAL IM SCH (06:00)
[2020-09-13] MEDS ORDERED: CATHETER FLUSH 10 ML SYR IV SCH (06:00)
[2020-09-13] MEDS ORDERED: ONDANSETRON 4 MG/2 ML (SDV) Z0FRAN IVP PRN (06:00)
--- NOTE | 2020-09-13 06:02 | Discharge Inst-Women's Service ---
Discharge Inst-Women's Serv Depart Medication/Instructions New, Converted or Re-Newed RX: RX on Chart Problems Reviewed?: Yes Consults/Follow Up Additional Follow Up: Yes Activity Activity: Activity as Tolerated Driving Instructions: No Driving for 1 Week NO SMOKING: NO SMOKING Nothing Inside Vagina: No Douching, No [place], No Tampons Diet Discharge Diet: No Restrictions Symptoms to Report to : Bleeding Excessive, Pain Increased, Fever Over 101 Degrees F, Vaginal Bleeding Increase, Questions/Concerns For Any Problems or Questions: Contact Your Physician Skin/Wound Care Infection Signs and Symptoms: Increased Redness, Foul Odor of Wound, Increased Drainage, Skin Itchy or Has a Rash, Increased Swelling, Temperature Above 101 F Operative Area Clean and Dry: Keep Incision Clean/Dry Stitches/[place]/Dermabond: Dermabond, Care of Stitches Bathing Instructions: RAFAL Nina DO September 13, 2020 06:02
[2020-09-13] MEDS ORDERED: ACHD5005 PO (06:03)
[2020-09-13] MEDS ORDERED: DCS100C PO (06:03)
[2020-09-13] MEDS ORDERED: IBUP-844 PO (06:03)
[2020-09-13] MEDS ORDERED: PHENYLEPHRINE 100 MCG/ML 10 ML (ANESTHESIA) SYR ONE (06:11)
[2020-09-13] MEDS: KETOROLAC 30 MG/ML VIAL IV SCH ×4 (06:50→23:21)
--- NOTE | 2020-09-13 12:05 | OPERATIVE REPORT ---
DATE OF SERVICE: PREOPERATIVE DIAGNOSES: 1. A 29-year-old G3, P1 at 37 weeks and 2 days gestation. 2. Malpresentation with alphonse breech. 3. Early stages of active labor. POSTOPERATIVE DIAGNOSES: 1. A 29-year-old G3, P1 at 37 weeks and 2 days gestation. 2. Malpresentation with alphonse breech. 3. Early stages of active labor. PROCEDURE PERFORMED: Primary low transverse section. SURGEON: Ferny Rosado DO. ANESTHESIA: Spinal. ESTIMATED BLOOD LOSS: 400 mL. URINE OUTPUT: 30 mL clear at the end of the procedure. FLUIDS: 2100 mL of lactated Ringer's solution. FINDINGS: A live female infant weighing 6 pounds and Apgars of 8 and 9. Grossly normal appearing uterus, bilateral fallopian tubes and ovaries. SPECIMEN SENT: Placenta. INDICATIONS FOR PROCEDURE: This 29-year-old female is a patient, who had sought care in my office. It was uncomplicated with the exception of malpresentation, which was identified last week on ultrasound and on examination. I discussed with the patient proceeding with primary and it was scheduled for the following week; however, the patient presented in early stages of active labor, jane every 2 to 4 minutes last night and made some minor cervical change. Due to active labor and persistent breech presentation, I discussed with the patient proceeding with primary . Risks of the procedure were discussed with the patient in detail including risk of bleeding, infection, damage to the surrounding structures including, but not limited to bowel, bladder, ureter, kidneys, possible need for operation, postoperative complications that may occur, recovery timeframe, risk from anesthesia and even . After everything was discussed with the patient in detail, consent was obtained in the preoperative area and the patient was taken to the operating room. OPERATIVE REPORT IN DETAIL: Once in the operating room, spinal analgesia was found to be adequate and she was placed in the supine position with the leftward tilt, prepped and draped in normal sterile fashion. Timeout was performed and anesthesia was tested. I then made a Pfannenstiel skin incision with a knife and carried down to the underlying fascia using Bovie cautery. Fascial incision was extended laterally using Bovie cautery. Superior aspect of the fascial incision was then grasped with Prisca clamps, tented up and dissected off the underlying rectus muscles. The inferior aspect of the fascial incision was then grasped with Prisca clamps, tented up and dissected off the underlying rectus muscles. The rectus muscles were then dissected down the midline, which exposed the peritoneum, which I entered bluntly and extended using blunt traction. Alcon ring retractor was placed within the peritoneal incision, which offers excellent lateral sidewall retraction. I then identified the lower uterine segment, which was found to be thinned out. I made a low transverse incision to the vesicouterine peritoneum and bluntly dissected off the lower uterine segment, creating a bladder flap. I then proceeded with myotomy until membranes were visualized, at which point, I extended the uterine incision laterally and superiorly using bandage scissors. Amniotomy was performed in the process of doing this, clear fluid was noted. The was found in a alphonse breech presentation. The buttocks were elevated up the incision, where they were delivered through the incision. The body was then delivered up to the shoulders and legs and feet were delivered in the process of doing this. I then placed the in a downward facing presentation and delivered the arms by sweeping them across the chest. I then elevated the infant's body and delivered the head by flexing it through the incision, at which point, the nares and oropharynx were bulb suctioned and the was then brought to the operative field, where the cord was doubly clamped and cut and infant was handed off to the awaiting nurses in attendance. Cord blood was collected, 3-vessel cord with intact placenta was delivered spontaneously thereafter. IV Pitocin was initiated to facilitate uterine contraction. Uterine fundus became firmer by manual massage. Uterus was then exteriorized and cleared of all endometrial clots and debris. I then proceeded with closing the uterine incision using 0 Vicryl suture in a running locked fashion. A second layer of imbricating 0 Monocryl was placed. Excellent hemostasis was noted after doing this. I then placed uterus back in the pelvis, copiously irrigated the pelvis using normal saline. Once again, there was no active bleeding noted from any of my dissection planes. I placed Interceed antiadhesive over my low transverse incision. I removed the Alcon ring retractor and proceeded with closing the peritoneum using 3-0 Vicryl suture in a running fashion. The rectus muscle reapproximated using 3-0 Vicryl suture in an interrupted fashion. The fascia was reapproximated using 0 Vicryl suture in a running fashion. The subcutaneous tissue was reapproximated using 3-0 plain interrupted subcutaneous stitch and the skin was reapproximated using 4-0 Monocryl running subcuticular. Dermabond was applied to the incision and sterile dressing with adhesive white tape. The patient tolerated the procedure well and was taken to the recovery area in stable condition. Lap and sponge count was correct at the end of the procedure. Instrument counts correct as well. Two grams of Ancef were given preoperatively for infection prophylaxis. Job ID: [id number] DocumentID: [id number] Dictated Date: 09/13/2020 06:55:14 Orchard Pruner Date: 09/13/2020 12:04:17 Dictated By: FERNY ROSADO DO
[2020-09-13] MEDS: HYDROcodone/APAP 5 MG/325 MG (LORTAB) TAB PO PRN ×2 (16:38→22:45)
[2020-09-13] MEDS: DOCUSATE SODIUM 100 MG (COLACE) CAP PO SCH ×2 (19:25→20:49)
[2020-09-13] MEDS: IBUPROFEN 600 MG (MOTRIN) TAB PO SCH (19:26)
[2020-09-14 04:33] VITALS: BP 128/83
[2020-09-14] MEDS: HYDROcodone/APAP 5 MG/325 MG (LORTAB) TAB PO PRN (04:33)
[2020-09-14] MEDS: IBUPROFEN 600 MG (MOTRIN) TAB PO SCH ×4 (04:45→18:00)
[2020-09-14 05:12] LABS: BASOPHILS # (AUTO) 0.1 10^3/uL (0.0-0.1); BASOPHILS % (AUTO) 1 % (0-10); EOSINOPHILS # (AUTO) 0.5 10^3/uL (0.0-0.3); EOSINOPHILS % (AUTO) 5 % (0-10); HEMATOCRIT 33 % (35-52); HEMOGLOBIN 11.1 g/dL (11.5-16.0); LYMPHOCYTES # (AUTO) 2.3 10^3/uL (1.0-4.0); LYMPHOCYTES % (AUTO) 22 % (12-44); MEAN CORPUSCULAR HEMOGLOBIN 30 pg (25-34); MEAN CORPUSCULAR HGB CONC 34 g/dL (32-36); MEAN CORPUSCULAR VOLUME 88 fL (80-99); MEAN PLATELET VOLUME 11.1 fL (9.0-12.2); MONOCYTES # (AUTO) 0.6 10^3/uL (0.0-1.0); MONOCYTES % (AUTO) 6 % (0-12); NEUTROPHILS % (AUTO) 66 % (42-75); PLATELET COUNT 188 10^3/uL (130-400); WHITE BLOOD COUNT 10.6 10^3/uL (4.3-11.0)
[2020-09-14] MEDS: DOCUSATE SODIUM 100 MG (COLACE) CAP PO SCH ×2 (07:36→20:39)
[2020-09-14 07:40] VITALS: BP 135/87
--- NOTE | 2020-09-14 09:48 | Postpartum Progress Note ---
Note Note Day # 1 Subjective: Patient is without complaints. Ambulating, voiding. Tolerating a regular diet without nausea or vomiting. Normal lochia. Pain is well controlled with oral pain medications. Objective: Physical Exam: General - Alert and oriented, no apparent distress Abdomen - Soft, appropriately tender to palpation, non-distended, fundus firm at umbilicus Extremities - no edema, negative Sujit's bilaterally Incision- c/d/i Assessment: POD 1 PLTCS Acute blood loss anemia Plan: Routine care. Encourage breast feeding. Encourage ambulation. Ferrous sulfate supplementation. Plan for discharge tomorrow Vitals - Labs Vital Signs - I&O Vital Signs Date Time Temp Pulse Resp B/P (MAP) Pulse Ox O2 Delivery O2 Flow Rate FiO2 09/14/20 07:40 36.8 86 18 135/87 (103) Room Air 09/14/20 04:33 36.8 104 18 128/83 (98) 98 Room Air 09/13/20 23:21 36.7 78 18 135/83 (100) 98 Room Air 09/13/20 20:49 36.8 89 20 123/80 (94) 97 Room Air 09/13/20 19:56 Room Air 09/13/20 18:00 37.5 90 20 119/77 (91) 96 Room Air 09/13/20 12:10 36.8 84 18 119/64 (82) Room Air I & O 09/14/20 07:00 Intake Total 3540 ml Output Total 2510 ml Balance 1030 ml Labs Laboratory Tests 09/14/20 04:59: White Blood Count 10.6, Red Blood Count 3.74L, Hemoglobin 11.1L, Hematocrit 33L, Mean Corpuscular Volume 88, Mean Corpuscular Hemoglobin 30, Mean Corpuscular Hemoglobin Concent 34, Red Cell Distribution Width 15.4H, Platelet Count 188, Mean Platelet Volume 11.1, Immature Granulocyte % (Auto) 0, Neutrophils (%) (Auto) 66, Lymphocytes (%) (Auto) 22, Monocytes (%) (Auto) 6, Eosinophils (%) (Auto) 5, Basophils (%) (Auto) 1, Neutrophils # (Auto) 7.0, Lymphocytes # (Auto) 2.3, Monocytes # (Auto) 0.6, Eosinophils # (Auto) 0.5H, Basophils # (Auto) 0.1, Immature Granulocyte # (Auto) 0.0 RAFAL ROSADO DO September 14, 2020 09:48
[2020-09-14 12:50] VITALS: BP 130/95
--- NOTE | 2020-09-14 13:25 | Anesthesia-Regional Post-Op ---
Regional Patient Condition Mental Status: Alert, Oriented x3 Circulation: Same as Pre-Op Headache: Absent Sensation: Full Recovery Motor Block: Absent Post Op Complications Complications None Follow Up Care/Instructions Patient Instructions None needed. Anesthesia/Patient Condition Patient is doing well, no complaints, stable vital signs, no apparent adverse anesthesia problems. No complications reported per nursing. ALFREDO HEREDIA CRNA September 14, 2020 13:25
[2020-09-14 17:55] VITALS: BP 129/82
[2020-09-14 20:53] VITALS: BP 121/73
[2020-09-15] MEDS: IBUPROFEN 600 MG (MOTRIN) TAB PO SCH ×3 (00:03→11:43)
[2020-09-15] MEDS: HYDROcodone/APAP 5 MG/325 MG (LORTAB) TAB PO PRN (00:06)
[2020-09-15 06:10] VITALS: BP 125/78
--- NOTE | 2020-09-15 07:30 | Postpartum Progress Note ---
Note Note Day # 2 Subjective: Patient is without complaints. Ambulating, voiding. Tolerating a regular diet without nausea or vomiting. Normal lochia. Pain is well controlled with oral pain medications. Objective: Physical Exam: General - Alert and oriented, no apparent distress Abdomen - Soft, appropriately tender to palpation, non-distended, fundus firm at umbilicus Extremities - no edema, negative Sujit's bilaterally Incision- c/d/i Assessment: POD 2 PLTCS Acute blood loss anemia Plan: Routine care. Encourage breast feeding. Encourage ambulation. Ferrous sulfate supplementation. Plan for discharge today Vitals - Labs Vital Signs - I&O Vital Signs Date Time Temp Pulse Resp B/P (MAP) Pulse Ox O2 Delivery O2 Flow Rate FiO2 09/15/20 06:10 36.2 70 18 125/78 (94) 97 Room Air 09/14/20 20:53 36.5 93 18 121/73 (89) 96 Room Air 09/14/20 17:55 37.0 80 18 129/82 (98) Room Air 09/14/20 12:50 36.9 85 20 130/95 (107) Room Air 09/14/20 07:40 36.8 86 18 135/87 (103) Room Air I & O 09/15/20 07:00 Intake Total 3550 ml Output Total 3150 ml Balance 400 ml RAFAL ROSADO DO September 15, 2020 07:30
--- NOTE | 2020-09-15 07:37 | Anesthesia-Regional Post-Op ---
Regional Patient Condition Mental Status: Alert, Oriented x3 Circulation: Same as Pre-Op Headache: Absent Sensation: Full Recovery Motor Block: Absent Post Op Complications Complications None Follow Up Care/Instructions Patient Instructions None needed. Anesthesia/Patient Condition Patient is doing well, no complaints, stable vital signs, no apparent adverse anesthesia problems. No complications reported per nursing. RICARDO ROMO CRNA September 15, 2020 07:37
[2020-09-15 09:53] VITALS: BP 145/94
[2020-09-15] MEDS: DOCUSATE SODIUM 100 MG (COLACE) CAP PO SCH (09:55)
== END 2020-09-15 11:55 | disposition home or self-care (01) | DRG 787 ==
LOC: WSo 14:59 → LDRP 15:00 → WSo 21:35 → LDRP 09-13 07:50
PROVIDERS: ADMIT Obstetrics & Gynecology; ATTEND Obstetrics & Gynecology
PROC: 10D00Z1 Extraction of Products of Conception, Low, Open Approach (ICD-10-PCS; principal; 2020-09-13 05:55)
DX: O64.1XX0 Obstructed labor due to breech presentation, not applicable or unspecified (principal); D62 Acute posthemorrhagic anemia; Z37.0 Single live birth; O90.81 Anemia of the puerperium; Z3A.37 37 weeks gestation of pregnancy
CPT/HCPCS: 36415; 85025; 86850; 86900; 86901; 94664; 99212

== ENCOUNTER 2020-09-27 00:06 | Emergency (ER) | payer BC ==
[~2020-09-27] VITALS: Ht 165 cm; Wt 85.0 kg
[~2020-09-27 00:06] MED LIST changes: +ACHD5005 PO; +DCS100C PO; +IBUP-844 PO
[2020-09-27] MEDS ORDERED: LIDOCAINE 1% INJ 20 ML 20 ML VIAL INJ ONE (00:45)
[2020-09-27] MEDS ORDERED: cefTRIAXone 1,000 MG/2.86 ml vial (IM ONLY) IM STA (00:45)
--- NOTE | 2020-09-27 00:51 | ED Integumentary General ---
General Chief Complaint: Post OP Complications/Pain Stated Complaint: POSS INFECTION, 09.13.20 Nursing Triage Note: Patient presents to the ER tonight with complaints of pain and oozing from her incision site on 09.13.20. Patient states she has more pain on her left side and that her temp was 99.5 at home. Source: patient, spouse Exam Limitations: no limitations History of Present Illness Date Seen by Provider: Sep 27, 2020 Time Seen by Provider: 00:25 Initial Comments Patient to the ER by private conveyance with her significant other and chief complaint for the past couple days she is had some redness tenderness swelling along the left side of her 2-week-old Pfannenstiel incision site by Dr. Rosado. Tonight however started draining some purulence. She has had a low-grade temperature 99.5 tonight but no fevers. No nausea vomiting diarrhea dysuria or discharge. She is not breast-feeding. Allergies and Home Medications Allergies Coded Allergies: ragweed pollen (Verified Allergy, Unknown, 02/02/16) Home Medications Cephalexin 500 Mg Tablet, 500 MG PO QID Prescribed by: JERAD GARCIA on 09/27/20 0052 Docusate Sodium 100 Mg Capsule, 100 MG PO BID PRN for CONSTIPATION-1ST LINE Prescribed by: RAFAL ROSADO on 09/13/20 0603 Hydrocodone Bit/Acetaminophen 1 Tab Tab, 1-2 EA PO Q6HR PRN for PAIN-MODERATE (5-7) Prescribed by: RAFAL ROSADO on 09/13/20 06 Ibuprofen 600 Mg Tablet, 600 MG PO Q6HR Prescribed by: RAFAL ROSADO on 09/13/20 0603 Pnv95/Ferrous Fumarate/FA 1 Each Tablet, 1 EACH PO DAILY, (Reported) Patient Home Medication List Home Medication List Reviewed: Yes Review of Systems Review of Systems Constitutional: No chills, No diaphoresis EENTM: No ear discharge, No ear pain Respiratory: No cough, No short of breath Cardiovascular: No edema, No palpitations Gastrointestinal: No abdominal pain, No nausea Psychiatric/Neurological: Denies Anxiety, Denies Depressed All Other Systems Reviewed Negative Unless Noted: Yes Past Jrntbtf-Tabooi-Snwzpu Hx Patient Social History Alcohol Use: Denies Use Smoking Status: Current Everyday Smoker 2nd Hand Smoke Exposure: No Recent Infectious Disease Expo: No Recent Hopitalizations: No Immunizations Up To Date Tetanus Booster (TDap): Unknown PED Vaccines UTD: No Seasonal Allergies Seasonal Allergies: Yes Past Medical History Surgeries: Yes (PORT PLACEMENT, WISDOM TEETH, PORT REMOVAL) Respiratory: Yes Asthma Currently Using CPAP: No Currently Using BIPAP: No Cardiac: No Neurological: Yes (Lyme disease ) Reproductive Disorders: No Female Reproductive Disorders: Denies Sexually Transmitted Disease: No HIV/AIDS: No Genitourinary: No Gastrointestinal: No Musculoskeletal: No Endocrine: No HEENT: Yes (WEARS CONTACTS) Loss of Vision: Denies Hearing Impairment: Denies Cancer: No Psychosocial: No Anxiety Integumentary: No Blood Disorders: No Adverse Reaction/Blood Tranf: No Family Medical History Arthritis (MATERNAL GRANDPARENTS ) Cardiovascular disease (PATERNAL GRANDPARENT) Completed stroke (PATERNAL GRANDMOTHER) Dementia (MATERNAL GREAT-GRANDPARENTS ) Diabetes mellitus (BOTH SIDES OF GRANDPARENTS HAVE DM) Hypertension 19 FATHER Myocardial infarction (PATERNAL GRANDFATHER ) Prostate cancer (MATERNAL GREAT GRANDFATHER ) Severe allergy 19 FATHER Heart Disease, Hypertension, Vascular Disease Physical Exam Vital Signs Vital Signs - First Documented 09/27/20 00:38 Pulse 112 Resp 16 B/P (MAP) 149/95 (113) Pulse Ox 97 O2 Delivery Room Air Capillary Refill : Less Than 3 Seconds General Appearance: WD/WN, no apparent distress HEENT: normal ENT inspection, pharynx normal Neck: full range of motion, normal inspection Cardiovascular: normal peripheral pulses, regular rate, rhythm Respiratory: normal breath sounds, no respiratory distress, no accessory muscle use Gastrointestinal: normal bowel sounds, no organomegaly Neurologic/Psychiatric: alert, normal mood/affect, oriented x 3 Procedures/Interventions I&D : Site: Pfannenstiel incision left lower pelvis Blade Size: Scissors Progress Thoroughly cleaned the skin with alcohol and moderate to dry. We then opened the wound using sterile gloves, sterile scissors 2 sites on the left side of the Pfannenstiel incision by cutting the subcuticular stitch. There is a small pocket of purulence running along the surgical wound that a sterile culturette swab was passed through and collected for wound culture. We then flushed the wound thoroughly with sterile saline and placed dry, sterile gauze over it. Progress/Results/Core Measures Results/Orders My Orders Orders - JERAD GARCIA Wound Culture (09/27/20 00:44) Ceftriaxone For Im Use (Rocephin For Im (09/27/20 00:45) Lidocaine 1% Inj 20 Ml (Xylocaine 1% Inj (09/27/20 00:45) Medications Given in ED Current Medications Medications Dose Ordered Sig/Loni Route Start Time Stop Time Status Last Admin Dose Admin Lidocaine HCl 2.1 ml ONCE ONCE INJ 09/27/20 00:45 09/27/20 00:46 DC 09/27/20 01:30 2.1 ML Vital Signs/I&O 09/27/20 09/27/20 00:38 01:37 Pulse 112 99 Resp 16 18 B/P (MAP) 149/95 (113) 132/97 Pulse Ox 97 98 O2 Delivery Room Air Room Air Blood Pressure Mean: 113 Progress Progress Note : Time: 00:47 Progress Note Aseptic vital signs. We loosed 2 areas of the subcuticular stitch and expressed about 2 cc of thin purulent material. Wound culture using sterile technique. We will put her on antibiotics and give her a shot of Rocephin tonight. Departure Impression Primary Impression: Wound infection following section, Disposition: 01 HOME, SELF-CARE Condition: Stable Departure-Patient Inst. Decision time for Depature: 00:49 Referrals: GILLIAN TINOCO DO (PCP) Primary Care Physician EVITA TINOCO DNP (Family) Primary Care Physician RAFAL ROSADO DO Patient Instructions: Wound Infection Add. Discharge Instructions: A bit of bacteria made its way into the wound and set up an abscess. We have opened and drained and flushed it. We sent a culture which will come back by early next week. Follow-up with Dr. Rosado sometime in the next week to reassess the wound. Keep the wound clean with regular soap and water only. Dry it thoroughly and then apply sterile gauze dressing to collect the drainage. Do not use chlorhexidine, iodine, alcohol or hydrogen peroxide as this will delay wound healing. Keflex 1 capsule 4 times a day for the next week. Expect to see significant improvement by day 3 or 4 of antibiotics. If you develop a strong fever of 102.5, nausea and vomiting, intractable pain despite Tylenol and ibuprofen or other worrisome symptoms then I would invite you to please return to the ER promptly for further management. Scripts Cephalexin (Cephalexin) 500 Mg Tablet 500 MG PO QID for 7 Days, #28 TAB 0 Refills Prov: JERAD GARCIA 09/27/20 Copy Copies To 1: RAFAL ROSADO TITUS J Sep 27, 2020 00:51
[2020-09-27] MEDS ORDERED: CEPH500T PO (00:52)
[2020-09-27 01:37] VITALS: BP 132/97
== END 2020-09-27 01:39 | disposition home or self-care (01) ==
LOC: EDUNIT# 00:06 → ER 00:10
DX: O86.00 Infection of obstetric surgical wound, unspecified (principal); J45.909 Unspecified asthma, uncomplicated; F17.200 Nicotine dependence, unspecified, uncomplicated
CPT/HCPCS: 87070; 87077; 87186; 87205; 99284

== ENCOUNTER → 2022-07-22 | Outpatient (CLI) | payer BC ==
[~2022-07-22] MED LIST changes: +ACET-11 PO; -ACET1TAB43 PO; +CEPH500T PO; -DCS100C PO; +DOCU-239 PO
[2022-07-22 15:31] LABS: BASOPHILS # (AUTO) 0.1 10^3/uL (0.0-0.1); BASOPHILS % (AUTO) 1 % (0-10); EOSINOPHILS # (AUTO) 0.5 10^3/uL (0.0-0.3); EOSINOPHILS % (AUTO) 7 % (0-10); HEMATOCRIT 44 % (35-52); LYMPHOCYTES # (AUTO) 2.9 10^3/uL (1.0-4.0); LYMPHOCYTES % (AUTO) 40 % (12-44); MEAN CORPUSCULAR HEMOGLOBIN 28 pg (25-34); MEAN CORPUSCULAR HGB CONC 34 g/dL (32-36); MEAN CORPUSCULAR VOLUME 82 fL (80-99); MEAN PLATELET VOLUME 10.2 fL (9.0-12.2); MONOCYTES # (AUTO) 0.5 10^3/uL (0.0-1.0); MONOCYTES % (AUTO) 7 % (0-12); NEUTROPHILS # (AUTO) 3.2 10^3/uL (1.8-7.8); NEUTROPHILS % (AUTO) 44 % (42-75); PLATELET COUNT 307 10^3/uL (130-400); WHITE BLOOD COUNT 7.3 10^3/uL (4.3-11.0)
[2022-07-22 15:54] LABS: ERYTHROCYTE SEDIMENTATION RATE 7 MM/HR (0-20)
== END ==
LOC: LAB 14:53
PROVIDERS: ATTEND Nurse Practitioner Family
DX: R20.2 Paresthesia of skin (principal); Z86.718 Personal history of other venous thrombosis and embolism
CPT/HCPCS: 36415; 85025; 85379; 85652

== ENCOUNTER → 2022-11-16 | Outpatient (CLI) | payer BC ==
[~2022-11-16] MED LIST changes: +[UNRECOGNIZED DRUG - CODE] SQ; -[UNRECOGNIZED DRUG - CODE] SQ
--- NOTE | 2022-11-16 21:36 | Diagnostic Imaging Report ---
INDICATION: PROCEDURE: Ultrasound abdomen complete. TECHNIQUE: Multiple real-time grayscale images were obtained of the abdomen in various projections. INDICATION: Low abdominal pain EXAMINATION: Ultrasound abdomen 11/16/2022 FINDINGS: The liver grossly unremarkable. No ascites. Common duct normal. The gallbladder wall not thickened with no stones appreciated. Visualized pancreas normal with portions obscured by overlying bowel gas. Spleen, aorta and IVC unremarkable. Right kidney 10.1 cm, the left kidney 9.8 cm. IMPRESSION: 1. No acute abnormality within the visualized structures. Dictated by: Dictated on workstation # [id number]
--- NOTE | 2022-11-16 21:39 | Diagnostic Imaging Report ---
PROCEDURE: US Non-ob pelvis comp/trans. TECHNIQUE: Multiple realtime grayscale images were obtained of the pelvis in various projections endovaginally. Transabdominal imaging was also performed. INDICATION: Low abdominal pain EXAMINATION: Pelvic sonogram non-OB 11/16/2022 FINDINGS: The uterus is 6.9 cm in length. Echogenic debris noted within the region of the cervix. Endometrium 0.4 cm in thickness. Right ovary normal in size with multiple follicles noted. Left ovary also normal in size with multiple follicles present. A more dominant cystic area measures 2.1 cm in greatest dimension with possible internal septations. There is no free fluid. IMPRESSION: 1. Larger cystic lesion left ovary possibly a dominant follicle or cyst, contains a focal septation. A 2-3 month follow-up recommended to assure resolution. Right ovary unremarkable. 2. Echogenic debris in the cervix of uncertain etiology perhaps focal calcifications or even air from recent pelvic examination. Dictated by: Dictated on workstation # [id number]
== END ==
LOC: RAD 16:05
PROVIDERS: ATTEND Nurse Practitioner Women's Health
DX: N83.202 Unspecified ovarian cyst, left side (principal)
CPT/HCPCS: 76700; 76830; 76856

== ENCOUNTER → 2023-02-22 | Outpatient (RCR) | payer BC ==
[2023-02-21 14:00] VITALS: BP 135/92
[2023-02-21] MEDS: cefTRIAXone 1 GM/NS 50 ML IVPB IV SCH ×2 (15:00)
[~2023-02-22] VITALS: Wt 85.0 kg
[2023-02-22 10:00] VITALS: BP 153/92
[2023-02-22] MEDS: cefTRIAXone 1 GM/NS 50 ML IVPB IV SCH ×2 (10:06)
== END ==
LOC: SDC 02-21 13:54
PROVIDERS: ATTEND Nurse Practitioner Family
DX: Z45.2 Encounter for adjustment and management of vascular access device (principal); A69.23 Arthritis due to Lyme disease
CPT/HCPCS: 36569; 76937; 96365; C1751

== ENCOUNTER 2023-03-19 20:38 | Emergency (ER) | payer BC ==
[~2023-03-19] VITALS: Ht 165 cm; Wt 75.0 kg
[2023-03-19 20:46] VITALS: BP 145/104
--- NOTE | 2023-03-19 20:56 | ED General ---
General Chief Complaint: General Problems/Pain Stated Complaint: PROBLEMS WITH PICC LINE Nursing Triage Note: Pt presents with c/o bleeding around PICC line. She reports she gets antibiotics through the line. Source of Information: Patient History of Present Illness Date Seen by Provider: Mar 19, 2023 Time Seen by Provider: 20:46 Initial Comments PT ARRIVES VIA POV FROM HOME PT HAS PICC LINE IN PLACE IN RIGHT ARM, X 1 MONTH STATES SHE HAS BEEN DX WITH CHRONIC LYME DISEASE--SEES JADE TINOCO--AND HAS BEEN RECEIVING IV ROCEPHIN--GIVES HERSELF THE MEDICATION AT HOME--SHE HAS HAD PICC LINE AND PORT IN THE PAST FOR THIS PROBLEM--PORT REMOVED IN 2014 SHE STATES THAT SHE NOTICED BLEEDING AROUND THE SITE LAST NIGHT THE BLEEDING APPEARS TO HAVE STOPPED AT THIS TIME, AND HAS NOT BLED OUTSIDE THE DRESSING SHE HAS NO SWELLING, NO REDNESS OR STREAKS, NO PURULENT DRAINAGE, NO PAIN, NO FEVER SHE WAS ABLE TO USE IT WITHOUT DIFFICULTY LAST NIGHT. SHE HAS NOT ATTEMPTED TO USE IT TONIGHT YET--WANTED IT CHECKED BEFORE SHE TRIED TO USE IT AGAIN NO KNOWN INJURY TO THE AREA SHE HAS AN APPOINTMENT ON TUESDAY TO GET THE DRESSING CHANGED, AND IS TO HAVE IT REMOVED ON 03/22/23, AFTER COMPLETING THIS ROUND OF TREATMENT SHE DOES NOT HAVE A FOLLOW UP APPOINTMENT SCHEDULED WITH JADE TINOCO AT THIS TIME NO OTHER CHRONIC MEDICAL PROBLEMS OR DAILY MEDICATIONS PCP: JADE TINOCO Allergies and Home Medications Allergies Coded Allergies: ragweed pollen (Verified Allergy, Unknown, 02/02/16) Patient Home Medication List Home Medication List Reviewed: Yes Cephalexin (Cephalexin) 500 Mg Tablet, 500 MG PO QID Prescribed by: JERAD GARCIA on 09/27/20 005 Docusate Sodium (Dok) 100 Mg Capsule, 100 MG PO BID PRN for CONSTIPATION-1ST LINE Prescribed by: RAFAL ROSADO on 09/13/20602 Hydrocodone Bit/Acetaminophen (HYDROcodone/APAP 5 MG/325 MG TAB) 1 Tab Tab, 1-2 EA PO Q6HR PRN for PAIN-MODERATE (5-7) Prescribed by: RAFAL ROSADO on 09/13/20602 Ibuprofen (Ibu) 600 Mg Tablet, 600 MG PO Q6HR Prescribed by: RAFAL ROSADO on 09/13/20602 Pnv95/Ferrous Fumarate/FA ( Caplet) 1 Each Tablet, 1 EACH PO DAILY, (Reported) Entered as Reported by: ELISA Davidson ERNST on 12/17/15 1606 Review of Systems Review of Systems Constitutional: no symptoms reported Respiratory: no symptoms reported Cardiovascular: no symptoms reported Musculoskeletal: see HPI Skin: see HPI Psychiatric/Neurological: No Symptoms Reported Past Oycomcc-Gkkdjp-Aztzbi Hx Patient Social History Tobacco Use?: No Substance use?: No Alcohol Use?: No Immunizations Up To Date Tetanus Booster (TDap): Unknown PED Vaccines UTD: No Seasonal Allergies Seasonal Allergies: Yes Past Medical History Surgeries: Yes (PORT PLACEMENT/REMOVED 2015, WISDOM TEETH, PORT REMOVAL; PICC LINE X 2) Section, Tonsillectomy Respiratory: Yes Asthma Currently Using CPAP: No Currently Using BIPAP: No Cardiac: No Neurological: No Reproductive Disorders: No Female Reproductive Disorders: Denies Sexually Transmitted Disease: No HIV/AIDS: No Genitourinary: No Gastrointestinal: No Musculoskeletal: No Endocrine: No HEENT: Yes (WEARS CONTACTS) Loss of Vision: Denies Hearing Impairment: Denies Cancer: No Psychosocial: Yes Anxiety Integumentary: No Blood Disorders: No Adverse Reaction/Blood Tranf: No Family Medical History Arthritis (MATERNAL GRANDPARENTS ) Cardiovascular disease (PATERNAL GRANDPARENT) Completed stroke (PATERNAL GRANDMOTHER) Dementia (MATERNAL GREAT-GRANDPARENTS ) Diabetes mellitus (BOTH SIDES OF GRANDPARENTS HAVE DM) Hypertension 19 FATHER Myocardial infarction (PATERNAL GRANDFATHER ) Prostate cancer (MATERNAL GREAT GRANDFATHER ) Severe allergy 19 FATHER Heart Disease, Hypertension, Vascular Disease "CHRONIC LYME DISEASE" Physical Exam Vital Signs Vital Signs - First Documented 03/19/23 20:46 Temp 36.4 Pulse 106 Resp 18 B/P (MAP) 145/104 (118) Capillary Refill : Less Than 3 Seconds Height, Weight, BMI Height: 5'5.00" Weight: 164lbs. 0oz. 74.990443ly; 27.00 BMI Method:Stated General Appearance: No Apparent Distress, WD/WN, Other (SMILING, VERY PLEASANT, DOES NOT APPEAR ILL OR TO BE IN ANY DISCOMFORT OR DISTRESS) Respiratory: No Accessory Muscle Use Cardiovascular: Regular Rate, Rhythm, Normal Peripheral Pulses Extremity: Normal Capillary Refill, Normal Range of Motion, Other (RIGHT UPPER ARM WITH PICC LINE IN PLACE. QUARTER SIZED AREA OF DRIED BLOOD AT INSERTION SITE, BUT NO BLEEDING OUTSIDE OF THE DRESSING. NO SWELLING, NO TENDERNESS, NO PURULENT DRAINAGE. NO REDNESS, NO STREAKS, NO CORDING. MOTOR/SENSORY/VASCULAR INTACT. ) Neurologic/Psychiatric: Alert, Oriented x3, No Motor/Sensory Deficits Skin: Normal Color, Warm/Dry Progress/Results/Core Measures Suspected Sepsis SIRS Temperature: Pulse: 106 Respiratory Rate: 18 Blood Pressure 145 /104 Mean: 118 Results/Orders Vital Signs/I&O 03/19/23 20:46 Temp 36.4 Pulse 106 Resp 18 B/P (MAP) 145/104 (118) Capillary Refill : Less Than 3 Seconds Blood Pressure Mean: 118 Progress Note : Progress Note SITE FLUSHES VERY EASILY, WITHOUT EXTRAVASATION OR SWELLING OR PAIN REASSURANCE GIVEN TO PT Departure Impression Primary Impression: Bleeding from PICC line Disposition: 01 HOME, SELF-CARE Condition: Stable Departure-Patient Inst. Decision time for Depature: 20:54 Referrals: EVITA TINOCO DNP (PCP/Family) Primary Care Physician Patient Instructions: Peripherally-Inserted Central Catheter (DC) Add. Discharge Instructions: CONTINUE USE OF PICC LINE INSTRUCTED RETURN TO ER IF YOU HAVE INCREASED BLEEDING, PAIN, SWELLING, REDNESS, STREAKS, FEVER FOLLOW UP WITH DR. TINOCO'S OFFICE NEXT WEEK SCHEDULED All discharge instructions reviewed with patient and/or family. Voiced understanding. CHRISTI FUENTES DO Mar 19, 2023 20:56
== END 2023-03-19 21:04 | disposition home or self-care (01) ==
LOC: EDUNIT# 20:38 → ER 20:41
DX: T82.838A Hemorrhage due to vascular prosthetic devices, implants and grafts, initial encounter (principal)
CPT/HCPCS: 99281

== ENCOUNTER 2023-03-22 10:26 | Outpatient (RCR) | payer BC ==
[2023-02-23] MEDS: cefTRIAXone 1 GM/NS 50 ML IVPB IV SCH ×2 (11:13)
[2023-02-23 11:29] VITALS: BP 127/93
[2023-02-24 10:07] VITALS: BP 132/89
[2023-02-24] MEDS: cefTRIAXone 1 GM/NS 50 ML IVPB IV SCH ×2 (10:17)
[2023-02-25] MEDS: cefTRIAXone 1 GM/NS 50 ML IVPB IV SCH ×2 (09:52)
[2023-02-25 09:54] VITALS: BP 141/96
[2023-02-28 11:10] VITALS: BP 127/93
[2023-03-07 11:40] VITALS: BP 128/89
[2023-03-14 14:30] VITALS: BP 132/107
[2023-03-21 11:35] VITALS: BP 139/89
[~2023-03-22] VITALS: Wt 85.0 kg
[~2023-03-22 10:26] MED LIST changes: +NS (IVPB) 50 ML 50 ML ONE; +ceFAZolin INJECTION 0 MG ONE; +cefTRIAXone 1,000 MG VIAL IV/IM ONE
[2023-03-22 10:56] LABS: BASOPHILS # (AUTO) 0.1 10^3/uL (0.0-0.1); BASOPHILS % (AUTO) 1 % (0-10); EOSINOPHILS # (AUTO) 0.4 10^3/uL (0.0-0.3); EOSINOPHILS % (AUTO) 7 % (0-10); HEMATOCRIT 42 % (35-52); HEMOGLOBIN 14.3 g/dL (11.5-16.0); LYMPHOCYTES # (AUTO) 2.3 10^3/uL (1.0-4.0); LYMPHOCYTES % (AUTO) 36 % (12-44); MEAN CORPUSCULAR HEMOGLOBIN 29 pg (25-34); MEAN CORPUSCULAR HGB CONC 34 g/dL (32-36); MEAN CORPUSCULAR VOLUME 85 fL (80-99); MEAN PLATELET VOLUME 9.9 fL (9.0-12.2); MONOCYTES # (AUTO) 0.4 10^3/uL (0.0-1.0); MONOCYTES % (AUTO) 7 % (0-12); NEUTROPHILS # (AUTO) 3.2 10^3/uL (1.8-7.8); NEUTROPHILS % (AUTO) 50 % (42-75); PLATELET COUNT 275 10^3/uL (130-400); WHITE BLOOD COUNT 6.4 10^3/uL (4.3-11.0)
[2023-03-22 11:15] LABS: ALBUMIN 4.5 GM/DL (3.2-4.5); BILIRUBIN,TOTAL 0.6 MG/DL (0.1-1.0); CALCIUM 9.1 MG/DL (8.5-10.1); CREATININE SERUM 0.76 MG/DL (0.60-1.30); POTASSIUM 3.8 MMOL/L (3.6-5.0); TOTAL PROTEIN 7.1 GM/DL (6.4-8.2)
== END 2023-03-24 | disposition home or self-care (01) ==
LOC: SDC 10:26
PROVIDERS: ATTEND Nurse Practitioner Family
DX: A69.23 Arthritis due to Lyme disease (principal); M79.10 Myalgia, unspecified site
CPT/HCPCS: 36415; 80053; 85025; 86038; 86039; 86255; 96365; 99211